=== PATIENT | female | born 1960 | race Caucasian/White ===

== ENCOUNTER → 2018-01-22 | Outpatient (CLI) | payer BC ==
--- NOTE | 2018-01-22 09:44 | US ---
EXAMINATION TYPE: US liver DATE OF EXAM: 01/22/2018 COMPARISON: NONE CLINICAL HISTORY: 57-year-old female R94.5 Abnormal results of liver function studies. TECHNIQUE: Multiple sonographic images of the right upper quadrant are obtained. FINDINGS: EXAM MEASUREMENTS: Liver Length: 20.2 cm Gallbladder Wall: 0.2 cm CBD: 0.3 cm Right Kidney: 11.9 x 4.4 x 5.2 cm Pancreas: Pancreatic head obscured by bowel gas. Visualized portions appear within normal limits. Liver: Enlarged with slight heterogeneous echotexture and diffuse increased echogenicity. No focal le jose seen. Gallbladder: fundus partially obscured by bowel gas. No abnormal distention, wall thickening, surrou nding fluid, or shadowing calculi. Evidence for sonographic Hernández's sign: no CBD: wnl Right Kidney: No hydronephrosis IMPRESSION: Hepatomegaly (20.2 cm) with at least moderate hepatic steatosis. Correlate with LFTs, lip id profile, and patient risk factors. No gallstones or biliary ductal dilatation.
== END | disposition home or self-care (01) ==
LOC: RADUSWWP 07:24
PROVIDERS: ATTEND Family Medicine
DX: K76.0 Fatty (change of) liver, not elsewhere classified (principal); R16.0 Hepatomegaly, not elsewhere classified
CPT/HCPCS: 76705